=== PATIENT | female | born 1945 | race Caucasian/White ===

== ENCOUNTER 2017-08-30 19:34 | Emergency (ER) | payer MEDICARE, OTHER ==
[2017-08-30 19:41] VITALS: BP 131/70
[2017-08-30] MEDS ORDERED: Lidocaine 1%* 5 ML VIAL INJ ONE (20:08)
--- NOTE | 2017-08-30 21:10 | ED ---
Laceration/Wound HPI - HPI Summary HPI Summary: 72-year-old female presents with left wrist laceration today. States she was washing a vase when it broke and lacerated her wrist. She denies any foreign body in the wound. She has full range of motion of her wrist. She denies any numbness tingling. her immunizations are up-to-date. Has history of lupus. - History of Current Complaint Stated Complaint: LACERATION LT WRIST Time Seen by Provider: 08/30/17 19:56 Pain Intensity: 5 - Allergy/Home Medications Allergies/Adverse Reactions: Allergies Allergy/AdvReac Type Severity Reaction Status Date / Time No Known Allergies Allergy Verified 05/07/17 13:18 PMH/Surg Hx/FS Hx/Imm Hx Endocrine/Hematology History: Denies: Hx Anticoagulant Therapy, Hx Diabetes, Hx Sickle Cell Disease, Hx Thyroid Disease Cardiovascular History: Denies: Hx Hypertension, Hx Pacemaker/ICD, Other Cardiovascular Problems/ Disorders Respiratory History: Reports: Other Respiratory Problems/Disorders - PLEURISY Denies: Hx Asthma, Hx Chronic Obstructive Pulmonary Disease (COPD) GI History: Denies: Hx Gastroesophageal Reflux Disease, Hx Irritable Bowel History: Reports: Hx Renal Disease Denies: Other Problems/Disorders Musculoskeletal History: Reports: Hx Arthritis - RHEUMATOID ARTHRITIS, Hx Rheumatoid Arthritis Denies: Hx Osteoporosis Sensory History: Reports: Hx Contacts or Glasses - GLASSES Denies: Hx Hearing Aid Opthamlomology History: Reports: Hx Contacts or Glasses - GLASSES Neurological History: Denies: Hx Dementia, Hx Seizures, Other Neuro Impairments/Disorders Psychiatric History: Denies: Hx Substance Abuse - Cancer History Cancer Type, Location and Year: lupus, ra Hx Chemotherapy: No Hx Radiation Therapy: No - Surgical History Surgery Procedure, Year, and Place: HYSTERECTOMY Hx Anesthesia Reactions: No - Immunization History Date of Tetanus Vaccine: T Infectious Disease History: No Infectious Disease History: Denies: Hx Hepatitis, Hx Human Immunodeficiency Virus (HIV), Traveled Outside the [place] in Last 30 Days - Family History Known Family History: Positive: Hypertension - Social History Alcohol Use: None Substance Use Type: Reports: None Smoking Status (MU): Never Smoked Tobacco Have You Smoked in the Last Year: No Review of Systems Negative: Fever Negative: Chest Pain Negative: Shortness Of Breath Positive: Myalgia - left wrist laceration All Other Systems Reviewed And Are Negative: Yes Physical Exam Triage Information Reviewed: Yes Vital Signs On Initial Exam: Initial Vitals Temp Pulse Resp BP Pulse Ox 97.3 F 73 20 131/70 98 08/30/17 19:37 08/30/17 19:37 08/30/17 19:37 08/30/17 19:37 08/30/17 19:37 Vital Signs Reviewed: Yes Appearance: Positive: Well-Appearing Skin: Positive: Warm, Dry, Other - 2cm by 1/2cm laceration left wrist Head/Face: Positive: Normal Head/Face Inspection Eyes: Positive: Normal, Conjunctiva Clear Respiratory/Lung Sounds: Positive: Clear to Auscultation, Breath Sounds Present Cardiovascular: Positive: Normal, RRR Musculoskeletal: Positive: Strength/ROM Intact - left wrist, Other - good pulses , capillary refill<2secs Neurological: Positive: Normal Psychiatric: Positive: Normal Procedures - Laceration/Wound Repair 1 Location: Other - left wrist Description: Linear Anesthesia: Local, 1.0% Length, Depth and Shape: 2cm by 1/2cm Betadine Prep?: Yes Irrigated w/ Saline (ccs): 100 Closure: Single Layer Suture Type: Prolene - 4-0 Number of Sutures: 2 Layer Closure?: No Sterile Dressing Applied?: No - telfa, neosporin, pratima Diagnostics - Vital Signs Vital Signs Temp Pulse Resp BP Pulse Ox 08/30/17 19:37 97.3 F 73 20 131/70 98 - Laboratory Lab Statement: Any lab studies that have been ordered have been reviewed, and results considered in the medical decision making process. Laceration Repair Course/Dx - Course Course Of Treatment: 72-year-old female presents with left wrist laceration today. States she was washing a vase when it broke and lacerated her wrist. She denies any foreign body in the wound. She has full range of motion of her wrist. She denies any numbness tingling. her immunizations are up-to-date. Has history of lupus. On exam has 2 cm by half cm laceration on left wrist. Clean area and place 2 sutures. Told to keep the area clean. Patient understands and agrees with plan. - Differential Dx Differental Diagnoses: Abrasion, Avulsion, Laceration - Clinical Impression Provider Diagnoses: Laceration of left wrist Discharge - Sign-Out/Discharge Documenting (check all that apply): Discharge/Admit/Transfer - Discharge Plan Condition: Good Disposition: HOME Patient Education Materials: [facility] Your [facility] (ED) Referrals: Jaswinder Sifuentes MD [Primary Care Provider] - Additional Instructions: Take Tylenol for pain every 6 hours Keep area clean and dry for 24 hours, afterwards do not soak area place neosporin on area and change bandage daily Return to ED or primary in 10-14 days to have sutures removed Return to ED if develop signs of infection such as fever, spreading redness, or pus. - Billing Disposition and Condition Condition: GOOD Disposition: Home
== END 2017-08-30 21:21 | disposition home or self-care (01) ==
LOC: ED 19:34
DX: S61.512A Laceration without foreign body of left wrist, initial encounter (principal); W25.XXXA Contact with sharp glass, initial encounter; Y93.G1 Activity, food preparation and clean up; Y92.89 Other specified places as the place of occurrence of the external cause
CPT/HCPCS: 12001; 96374; 99282

== ENCOUNTER 2017-11-10 08:51 | Emergency (ER) | payer MEDICARE, OTHER ==
[2017-11-10 09:29] LABS: ABS Basophils 0.1 10^3/ul (0-0.2); ABS Eosinophils 0.2 10^3/ul (0-0.6); ABS Lymphocytes 2.7 10^3/ul (1.0-4.8); ABS Monocytes 0.4 10^3/ul (0-0.8); ABS Neutrophils 2.6 10^3/ul (1.5-7.7); ABS Nucleated RBC 0 10^3/ul; Eosinophil % 3.6 % (0-6); Hematocrit 38 % (35-47); Hemoglobin 13.1 g/dl (12.0-16.0); Lymphocyte % 45.1 % (25-47); Mean Corpuscular HGB Conc 34 g/dl (31-36); Mean Corpuscular Hemoglobin 30 pg (27-31); Mean Corpuscular Volume 87 fL (80-97); Mean Platelet Volume 7.7 um3 (7.4-10.4); Nucleated Red Blood Cells % 0; Platelet Count 234 10^3/ul (150-450); Red Blood Count 4.37 10^6/ul (4.00-5.40); Red Cell Distribution Width 14 % (10.5-15); White Blood Count 6.1 10^3/ul (3.5-10.8)
--- NOTE | 2017-11-10 09:42 | RAD ---
HISTORY: CP, chest pain, pressure COMPARISONS: March 24, 2012 VIEWS: 1: frontal portable view of the chest at 9:30 AM FINDINGS: LINES AND TUBES: None. CARDIOMEDIASTINAL SILHOUETTE: The cardiomediastinal silhouette is normal for portable technique. PLEURA: The costophrenic angles are sharp. No pleural abnormalities are noted. LUNG PARENCHYMA: The lungs are clear. ABDOMEN: The upper abdomen is clear. There is no subphrenic gas. BONES AND SOFT TISSUES: No bone or soft tissue abnormalities are noted. IMPRESSION: NO ACTIVE CARDIOPULMONARY DISEASE.
[2017-11-10 09:47] LABS: EGFR Non-African American 56.8 (>60)
--- NOTE | 2017-11-10 09:51 | ED ---
HPI Chest Pain - HPI Summary HPI Summary: This is scribe Herman Sanchez documenting for attending Deuce Gold. A 72 y/o female presents to ED c/o chest pressure and cough reaching 5/10 in severity. In the ED room, the patient has a pulse of 73 BPM, O2 saturation of 97 % and blood pressure of 144/75. Later in the ED room, the patient has a pulse of 73 BPM, O2 saturation of 97% and blood pressure of 123/78. As per triage, " Pt here with c/o chest pressure which she describes as pleuritic pain. Pt hx of RA with Humira as effective treatment. pt had been on abx for infection and stopped humira two weeks ago. Pt states she is coughing up brown phlem this morning which has cleared up. Pt describes the pressure in the mid sternal area ". According to the patient, she has had RA and lupus for many years and has done several infusions/injections that has been helping her (off for past 2 weeks). Over those years, she has come to ED sometimes for pleurisy. Less then a week ago she felt chest pressure that she thought was her pleurisy. She had an infection 2 weeks ago with a cough and chest pressure. She was put on a z- pack which immediately helped the patient. She noted that she has a very little immune system and stated that her cough never went away. The cough was not frequent but it was intermittent with wheezing. For the past few days, she has been feeling the chest pressure and has been feeling "miserable". Today she woke up and didn't feel as much chest pressure as she did before, but now her cough has copious amounts of thick brown sputum with flex (currently doesn't have, but 1 hour ago during blood tests she noted a bit of brown in sputum). She thinks she coughed up a quarter of a cup in total in different napkins over the course, however, it was brown not red. She noted that this has never happened before. Pt stated that she has sweats and night sweats, denies fever. Patient denies any travel recently, however her and son came from a trip 5 days ago, but she was already ill at that point. Her pressure is coupled with discomfort "like the pleuritic pain" which is not associated with the coughing. The pressure worsens with deep breathe. The patient noted that she is an actively elderly woman who goes on long walks and entertains people. She is not really exerting herself when she experiences chest pressure. She just feels tired because she doesn't feel great. Patient has not been losing weight. Recently started on Julieta. PMHx of HBP and high cholesterol, denies tuberculoses or emphysema. No FHx o heart disease. No SHx of smoking or second hand smoke. PCP is Dr. Barksdale. Patient wants joselyn le, no food. I, Dr. Gold, personally performed the services described in this documentation as scribed in my presence and it is both accurate and complete. - History of Current Complaint Chief Complaint: EDChestPainROMI Time Seen by Provider: 11/10/17 09:05 Hx Obtained From: Patient Onset/Duration: Started Weeks Ago, Still Present Timing: Intermittent Initial Severity: Moderate Current Severity: Moderate Pain Intensity: 5 Pain Scale Used: 0-10 Numeric Chest Pain Location: Diffuse - chest pressure Chest Pain Radiates: No Character: Cough, Productive, Pressure/Squeezing Aggravating Factor(s): Nothing Alleviating Factor(s): Nothing Associated Signs and Symptoms: Positive: Chest Pain, Diaphoresis, Productive Cough. Negative: Fever - Allergy/Home Medications Allergies/Adverse Reactions: Allergies Allergy/AdvReac Type Severity Reaction Status Date / Time No Known Allergies Allergy Verified 11/10/17 08:56 PMH/Surg Hx/FS Hx/Imm Hx Endocrine/Hematology History: Denies: Hx Anticoagulant Therapy, Hx Diabetes, Hx Sickle Cell Disease, Hx Thyroid Disease Cardiovascular History: Denies: Hx Hypertension, Hx Pacemaker/ICD, Other Cardiovascular Problems/ Disorders Respiratory History: Reports: Other Respiratory Problems/Disorders - PLEURISY Denies: Hx Asthma, Hx Chronic Obstructive Pulmonary Disease (COPD) GI History: Denies: Hx Gastroesophageal Reflux Disease, Hx Irritable Bowel History: Reports: Hx Renal Disease Denies: Other Problems/Disorders Musculoskeletal History: Reports: Hx Arthritis - RHEUMATOID ARTHRITIS, Hx Rheumatoid Arthritis Denies: Hx Osteoporosis Sensory History: Reports: Hx Contacts or Glasses - GLASSES Denies: Hx Hearing Aid Opthamlomology History: Reports: Hx Contacts or Glasses - GLASSES Neurological History: Denies: Hx Dementia, Hx Seizures, Other Neuro Impairments/Disorders Psychiatric History: Denies: Hx Substance Abuse - Cancer History Cancer Type, Location and Year: lupus, ra Hx Chemotherapy: No Hx Radiation Therapy: No - Surgical History Surgery Procedure, Year, and Place: HYSTERECTOMY Hx Anesthesia Reactions: No - Immunization History Date of Tetanus Vaccine: T Infectious Disease History: No Infectious Disease History: Denies: Hx Hepatitis, Hx Human Immunodeficiency Virus (HIV), Traveled Outside the US in Last 30 Days - Family History Known Family History: Positive: Hypertension - Social History Alcohol Use: None Substance Use Type: Reports: None Smoking Status (MU): Never Smoked Tobacco Have You Smoked in the Last Year: No Review of Systems Positive: Fatigue, Skin Diaphoresis - Night sweats, Other - POSITIVE: Generalized sickness. Negative: Fever, Chills Negative: Erythema Negative: Sore Throat Positive: Chest Pain - Pressure Positive: Cough - Productive. Negative: Shortness Of Breath Negative: Abdominal Pain, Vomiting, Nausea Negative: dysuria, hematuria Negative: Myalgia, Edema Negative: Rash Neurological: Other - NEGATIVE: Dizziness All Other Systems Reviewed And Are Negative: Yes Physical Exam - Summary Physical Exam Summary: Constitutional: Well-developed, Well-nourished, Alert. (-) Distressed Skin: Warm, Dry HENT: Normocephalic; Atraumatic Eyes: Conjunctiva normal Neck: Musculoskeletal ROM normal neck. (-) JVD, (-) Stridor, (-) Tracheal deviation Cardio: Rhythm regular, rate normal, Heart sounds normal; Intact distal pulses; The pedal pulses are 2+ and symmetric. Radial pulses are 2+ and symmetric. (-) Murmur Pulmonary/Chest wall: Effort normal. (-) Respiratory distress, (-) Wheezes, (-) Rales Abd: Soft, (-) epigastric tenderness, (-) Distension, (-) Guarding, (-) Rebound Musculoskeletal: (-) Edema Lymph: (-) Cervical adenopathy Neuro: Alert, Oriented x3 Psych: Mood and affect Normal Triage Information Reviewed: Yes Vital Signs On Initial Exam: Initial Vitals Temp Pulse Resp BP Pulse Ox 97.3 F 79 16 158/82 98 11/10/17 08:58 11/10/17 08:58 11/10/17 08:58 11/10/17 08:58 11/10/17 08:58 Vital Signs Reviewed: Yes Diagnostics - Vital Signs Vital Signs Temp Pulse Resp BP Pulse Ox 11/10/17 08:58 97.3 F 79 16 158/82 98 - Laboratory Lab Results: Lab Results 11/10/17 11/10/17 11/10/17 Range/Units 09:16 09:16 09:16 WBC 6.1 (3.5-10.8) 10^3/ul RBC 4.37 (4.00-5.40) 10^6/ul Hgb 13.1 (12.0-16.0) g/dl Hct 38 (35-47) % MCV 87 (80-97) fL MCH 30 (27-31) pg MCHC 34 (31-36) g/dl RDW 14 (10.5-15) % Plt Count 234 (150-450) 10^3/ul MPV 7.7 (7.4-10.4) um3 Neut % (Auto) 43.4 (38-83) % Lymph % (Auto) 45.1 (25-47) % Mitchell % (Auto) 7.0 (0-7) % Eos % (Auto) 3.6 (0-6) % Baso % (Auto) 0.9 (0-2) % Absolute Neuts (auto) 2.6 (1.5-7.7) 10^3/ul Absolute Lymphs (auto) 2.7 (1.0-4.8) 10^3/ul Absolute Monos (auto) 0.4 (0-0.8) 10^3/ul Absolute Eos (auto) 0.2 (0-0.6) 10^3/ul Absolute Basos (auto) 0.1 (0-0.2) 10^3/ul Absolute Nucleated RBC 0 10^3/ul Nucleated RBC % 0 Sodium 142 (135-145) mmol/L Potassium 3.8 (3.5-5.0) mmol/L Chloride 108 (101-111) mmol/L Carbon Dioxide 27 (22-32) mmol/L Anion Gap 7 (2-11) mmol/L BUN 22 (6-24) mg/dL Creatinine 0.97 H (0.51-0.95) mg/dL Est GFR ( Amer) 68.7 (>60) Est GFR (Non-Af Amer) 56.8 (>60) BUN/Creatinine Ratio 22.7 H (8-20) Glucose 97 (70-100) mg/dL Lactic Acid 1.0 (0.5-2.0) mmol/L Calcium 8.9 (8.6-10.3) mg/dL Total Bilirubin 0.50 (0.2-1.0) mg/dL AST 21 (13-39) U/L ALT 17 (7-52) U/L Alkaline Phosphatase 66 (34-104) U/L Troponin I 0.00 (<0.04) ng/mL Total Protein 6.6 (6.4-8.9) g/dL Albumin 4.0 (3.2-5.2) g/dL Globulin 2.6 (2-4) g/dL Albumin/Globulin Ratio 1.5 (1-3) Result Diagrams: 11/10/17 09:16 11/10/17 09:16 Lab Statement: Any lab studies that have been ordered have been reviewed, and results considered in the medical decision making process. - Radiology CXR Radiology Interpretation Completed By: Radiologist - NO ACTIVE CARDIOPULMONARY DISEASE. ED physician reviewed this radiology report. - CT CTA CHEST/THORAX CT Interpretation Completed By: Radiologist - NO PULMONARY ARTERIAL FILLING DEFECT TO SUGGEST PULMONARY EMBOLISM. ED PHYSICIAN REVIEWED THIS RADIOLOGY REPORT. - EKG 0907 Cardiac Rate: NL - 71 BPM EKG Rhythm: Sinus Rhythm EKG Interpretation: Negative STEMI Re-Evaluation - Re-Evaluation First Eval Re-Evaluation Time: 13:00 Change: Unchanged Second Eval Re-Evaluation Time: 13:45 Comment: Attempted to call Dr. Soni, no answer. Chest Pain Course/Dx - Course Course Of Treatment: A 72 y/o female presents to ED c/o chest pressure and cough reaching 5/10 in severity. In the ED room, the patient has a pulse of 73 BPM, O2 saturation of 97% and blood pressure of 144/75. A CXR revealed no active cardiopulmonary disease. An EKG revealed a NSR of 71 BPM, negative STEMI. A CTA Chest/Thorax revealed no pulmonary arterial filling defect to suggest pulmonary embolism. In the ED course, the patient received Aspirin, Zithromax, Visipaque and NTG. 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 She did eat outside in the outdoor cafe and only went inside to use the bathroom. It was found that she was in [facility] on September. The recent legionnaires outbreak at the [facility] was discussed with the patient, however, the patient was informed that most likely it is not legionnaires. MD attempted to reach Dr. Soni who is not electrical controls engineer, but there was no answer. It was discussed with patient that her chest pressure is part of cardiac risk factor could be related to angina. Patient was recommended to for further workup in [facility], however, patient declined and wants to leave AMA with full understanding of the risk factors including disability and . Patient still would like to be discharged AMA because she has a shannon chris terrier dog at home who cannot be home alone. Patient will be discharged AMA with a diagnosis of productive cough and hemoptysis. Patient is to follow up with [facility] tomorrow. Patient is to also follow up with PCP in 1-[address] Turk. Patient is agreeable with this plan. - Diagnoses Provider Diagnoses: Hemoptysis, Productive cough Discharge - Sign-Out/Discharge Documenting (check all that apply): Patient Departure - DISCHARGE - AMA - Discharge Plan Condition: Stable Disposition: AGAINST MEDICAL ADVICE Prescriptions: Azithromycin TAB* [Zithromax TAB (Z-AMBER) 250 mg #6 tabs] 250 mg PO DAILY #4 tab Patient Education Materials: Hemoptysis (ED), Acute Cough (ED), Wheezing (ED) Referrals: Jaswinder Sifuentes MD [Primary Care Provider] - 2 Days Steffany Turk MD [Medical Doctor] - 2 Days [facility] [Outside] - 1 Day Additional Instructions: FOLLOW UP WITH [facility] TOMORROW. FOLLOW UP WITH DR. TURK IN 2-3 DAYS. FOLLOW UP WITH PRIMARY CARE IN 2-3 DAYS. RETURN TO ED FOR ANY NEW OR WORSENING SYMPTOMS.
[2017-11-10] MEDS ORDERED: Nitroglycerin TAB 0.4 MG* 0.4 MG TAB SL ONE (11:36)
[2017-11-10] MEDS ORDERED: Aspirin 81 mg CHEW TAB* 81 MG TAB.CHEW PO ONE (11:36)
[2017-11-10] MEDS ORDERED: Iodixanol* (CONTRAST) 320 MG/ML 100 ML SDV IV ONE (13:03)
--- NOTE | 2017-11-10 13:26 | RAD ---
HISTORY: PLEURITIC CP, HEMOPTYSIS COMPARISONS: None TECHNIQUE: Multiple contiguous axial CT scans of the chest were obtained after the administration of nonionic intravenous contrast, timed to the pulmonary arterial phase of contrast enhancement.. Coronal and sagittal multiplanar reformations are also submitted for review. FINDINGS: NECK AND THYROID: The lower neck and thyroid are unremarkable. CHEST WALL: There is no lower cervical, axillary, or supraclavicular lymphadenopathy by size criteria. HEART AND PERICARDIUM: The heart is unremarkable. AORTA AND PULMONARY VASCULATURE: There is no pulmonary arterial filling defect to suggest pulmonary embolism. There is no linear filling defect within the aorta to suggest aortic dissection. MEDIASTINUM: There is no mediastinal lymphadenopathy by size criteria. ALONDRA: There is no hilar lymphadenopathy by size criteria. AIRWAY AND ESOPHAGUS: The airway is unremarkable, without endobronchial filling defect. The esophagus is grossly normal. LUNG PARENCHYMA: The lungs are clear. PLEURA: No pleural abnormalities are noted. UPPER ABDOMEN: The upper abdomen is unremarkable. BONES AND SOFT TISSUES: No bone or soft tissue abnormalities are noted. OTHER: None. IMPRESSION: NO PULMONARY ARTERIAL FILLING DEFECT TO SUGGEST PULMONARY EMBOLISM.
[2017-11-10] MEDS ORDERED: Azithromycin TAB* 250 MG PO ONE (13:46)
[2017-11-10 14:00] VITALS: BP 148/69
== END 2017-11-10 14:14 | disposition home or self-care (01) ==
LOC: ED 08:51
DX: R04.2 Hemoptysis (principal); R05 Cough; R53.83 Other fatigue; R61 Generalized hyperhidrosis
CPT/HCPCS: 36415; 71045; 71275; 80053; 83605; 84484; 85025; 85379; 86480; 86713; 87040; 93005; 99283; A9270-GY; Q9967

== ENCOUNTER → 2018-12-03 05:29 | Day surgery (SDC) | payer MEDICARE, OTHER ==
[~2018-12-03 05:29] MED LIST: Acetaminophen TAB* 325 MG PO PRN; Buffered Lidocaine 1% SYRIN* 1 ML/SYRINGE INTRADERM ONE; Dexamethasone IV* 4 MG/ML 1 ML (4 MG) ONE; DiMENhydriNATE IV* 50 MG/ML VIAL IV PUSH PRN; DiMENhydriNATE IV* 50 MG/ML VIAL ONE; Famotidine IV* 10 MG/ML 2 ML (20 mg) IV ONE; Famotidine IV* 10 MG/ML 2 ML (20 mg) ONE; Ketorolac INJ* 30 MG/ML 1 ML VIAL ONE; Lactated Ringers 1000 ML Bag* 1,000 ML IV SCH; Lidocaine 1% MPF ** 5 ML VIAL ONE; Midazolam* 1 MG/ML 5 ML VIAL (5 MG) ONE; Naloxone* 0.4 MG/ML 1 ML VIAL IV PRN; Ondansetron INJ* 2 MG/ML VIAL ONE; Propofol* 10 MG/ML 20 ML BTL ONE; ROPIVACAINE 5 MG/ML 30 ML BTL (0.5%) ONE; Succinylcholine* 20 MG/ML 10 ML VIAL ONE; ceFAZolin 2 GM in NS PREMIX(*) 2 GM/100 ML BAG IVPB ONE; fentaNYL* 50 MCG/ML 2 ML VIAL (100 MCG VIAL) ONE; oxyCODONE TAB* 5 MG TAB PO PRN
[2018-12-03 10:12] VITALS: BP 158/79
--- NOTE | 2018-12-04 12:38 | OP ---
DATE OF OPERATION: 12/03/18 - [facility] DATE OF : 49 SURGEON: Sid Erazo MD LINE SUPERVISOR: LUCIANA Salas. An appeals assistant was needed for the entirety of the case to help with positioning, retraction, and was utilized throughout all portions of the case. ANESTHESIOLOGIST: Dr. Orellana. ANESTHESIA: General with interscalene block. PRE-OP DIAGNOSIS: Left shoulder superior labral tear with bicipital tendinitis and partial-thickness tearing of the rotator cuff. POST-OP DIAGNOSIS: Left shoulder superior labral tear with bicipital tendinitis and partial-thickness tearing of the rotator cuff. OPERATIVE PROCEDURE: Left shoulder arthroscopy with: 1. Extensive glenohumeral debridement including chondroplasty and biceps tenotomy. 2. Subacromial decompression with acromioplasty. 3. Rotator cuff repair using Regeneten patch. COMPLICATIONS: None. ESTIMATED BLOOD LOSS: Minimal. IMPLANTS USED: One Regeneten patch size medium. INDICATIONS: Breanna Berry is a 73-year-old female with persistent shoulder pain. She has failed conservative management. She had initially calcific tendinitis which appeared to be resolved, but had partial tearing of the rotator cuff and bicipital tendinitis symptoms. She responded injections, but temporarily. Risks and benefits were discussed at length and included, but are not limited to bleeding; infection; damage to nerves, vessels, surrounding structures; wound nonhealing; persistent pain; need for further surgery; scarring; stiffness ; incomplete relief of symptoms; risks of anesthesia. DESCRIPTION OF PROCEDURE: The patient was greeted in the preoperative area by the attending surgeon. Correct extremity was marked and consent was confirmed. The patient underwent interscalene nerve block by the anesthesiologist, after which she was brought back to the operating suite where she was placed in supine position on the operating table. She then underwent general anesthesia and endotracheal intubation, after which she was placed in the right lateral decubitus position with all bony prominences padded. She was secured with a pegboard. The left arm was suspended with 10 pounds of traction. The left shoulder was then prepped and draped in the usual sterile fashion beginning with chlorhexidine soap, scrub, and alcohol wipe, and a final prep with ChloraPrep. After appropriate surgical pause indicating side, site, procedure, and administration of antibiotics, the standard postero-lateral portal was then made sharply with 11 blade. Scope was introduced into the joint and the joint was examined. There were some chondral changes, grade 2, and small areas of grade 3 changes with obvious superior labral tear with damage to the clayton as well. The undersurface of the rotator cuff had some mild partial tearing. The subscap was intact. The inferior recess was intact. There was abundant synovitis. The anterior portal was made in an outside-in fashion. Shaver was used to debride back the anterior, posterior, and superior labrum. The biceps was then tenotomized which was discussed with the patient prior to surgery. Once the intraarticular work was completed, chondroplasty was done as well to remove any unstable flaps. The scope was positioned in the subacromial space. The subacromial space was examined and there was abundant bursa that was present. There was synovitis. This was removed using the saundra. Once this was done, the undersurface of the acromion was skeletonized using electrocautery device, which revealed an anterolateral spur. A 4-0 oval ivan was then used to do an acromioplasty. All loose debris was removed and attention was directed to the rotator cuff. Her cuff appeared to have partial thickness tearing on the bursal side, and was friable. Decision was made to treat this with a Regeneten patch as she had some mild partial-thickness tearing and rotator cuff symptoms. A size medium patch was then chosen and brought arthroscopically into the field. Once it was brought, it was secured medially with tendon soco and then laterally with bone soco. Final images were obtained once it was secured. The wounds were then copiously irrigated with sterile saline. The portals were closed with 3-0 nylon. Sterile dressings were applied. Cryo/Cuff and a regular sling were applied. She was awoken from anesthesia and transferred to the PACU in stable condition. POSTOPERATIVE PLAN: She will be nonweightbearing. She will start physical therapy within a week. She will be discharged with pain medication. DVT prophylaxis was considered, but deferred due to no previous personal or family history. I will see the patient back in 10 to 14 days. [id number]/[facility] #: [id number] CHERYL
== END | disposition home or self-care (01) ==
LOC: OR 05:29
PROVIDERS: ATTEND Orthopaedic Surgery
DX: S43.432A Superior glenoid labrum lesion of left shoulder, initial encounter (principal); S46.012A Strain of muscle(s) and tendon(s) of the rotator cuff of left shoulder, initial encounter; X58.XXXA Exposure to other specified factors, initial encounter; Y92.9 Unspecified place or not applicable; M75.32 Calcific tendinitis of left shoulder; M06.9 Rheumatoid arthritis, unspecified; I10 Essential (primary) hypertension; G89.18 Other acute postprocedural pain; E78.5 Hyperlipidemia, unspecified; M85.80 Other specified disorders of bone density and structure, unspecified site; M32.9 Systemic lupus erythematosus, unspecified; N28.9 Disorder of kidney and ureter, unspecified
CPT/HCPCS: C1713; J0330; J0690; J1100; J1240; J1885; J2250; J2405; J2704; J2795; J3010